=== PATIENT | male | born 1950 | race Caucasian/White ===

== ENCOUNTER → 2016-10-23 | Outpatient (CLI) | payer MEDICARE ==
[~2016-10-23] MED LIST: ALEVE 220MG220 MG PO; DAILY VITE1 TA1 PO; FISH OIL1 IU PO; GLUCOSAMINE PO; LOW DOSE ASPIRI81 M1 PO; NATURAL FLAX1000 MG PO; NO HOME MEDICATIONS
== END ==
LOC: LAB 10:39
DX: E78.1 Pure hyperglyceridemia (principal); Z12.5 Encounter for screening for malignant neoplasm of prostate

== ENCOUNTER → 2016-10-30 | Outpatient (CLI) | payer MEDICARE | LOC: LAB 11:25 | DX: Z23 Encounter for immunization (principal); Z00.00 Encounter for general adult medical examination without abnormal findings; R13.10 Dysphagia, unspecified; N40.0 Benign prostatic hyperplasia without lower urinary tract symptoms; K21.9 Gastro-esophageal reflux disease without esophagitis; M16.12 Unilateral primary osteoarthritis, left hip; L57.0 Actinic keratosis; R73.09 Other abnormal glucose ==

== ENCOUNTER → 2016-11-25 | Day surgery (SDC) | payer MEDICARE | LOC: MSO 07:10 | DX: K21.9 Gastro-esophageal reflux disease without esophagitis (principal); K29.60 Other gastritis without bleeding; K44.9 Diaphragmatic hernia without obstruction or gangrene | CPT/HCPCS: 00740; A4649; J7120 ==

== ENCOUNTER → 2017-12-18 | Outpatient (CLI) | payer MEDICARE ==
[2016-03-25 10:38] VITALS: BP 118/88
[2017-12-18 09:56] LABS: ALBUMIN 3.7 g/dL (3.5-5.0); BUN/CREATININE RATIO 34.1 (6.0-26.0); CALCIUM 8.9 mg/dL (8.4-10.2); POTASSIUM 4.3 mmol/L (3.6-5.0); TOTAL BILIRUBIN 0.4 mg/dL (0.2-1.3); TOTAL PROTEIN 6.9 g/dL (6.3-8.2)
== END ==
LOC: LAB 09:30
PROVIDERS: Family Medicine
DX: Z00.00 Encounter for general adult medical examination without abnormal findings (principal); Z13.6 Encounter for screening for cardiovascular disorders; N40.0 Benign prostatic hyperplasia without lower urinary tract symptoms; Z13.1 Encounter for screening for diabetes mellitus; K44.9 Diaphragmatic hernia without obstruction or gangrene; L21.8 Other seborrheic dermatitis; R03.0 Elevated blood-pressure reading, without diagnosis of hypertension

== ENCOUNTER 2018-09-28 18:22 | Emergency (ER) | payer MEDICARE ==
[~2018-09-28] VITALS: Ht 180.3 cm; Wt 101.8 kg
[2018-09-28] MEDS ORDERED: PROSTATE HEALT1 EACH (18:30)
[2018-09-28 19:14] LABS: HEMATOCRIT 38.4 % (42.0-52.0); HEMOGLOBIN 12.4 g/dL (13.5-18.0); RED BLOOD COUNT 4.62 M/mm3 (4.20-5.60); RED CELL DISTRIBUTION WIDTH 16.5 % (11.5-14.5); WHITE BLOOD COUNT 6.7 K/mm3 (4.8-10.8)
[2018-09-28 19:20] LABS: ALBUMIN 3.9 g/dL (3.5-5.0); CALCIUM 8.8 mg/dL (8.4-10.2); TOTAL BILIRUBIN 0.4 mg/dL (0.2-1.3); TOTAL PROTEIN 6.5 g/dL (6.3-8.2)
[2018-09-28 19:57] LABS: URINE APPEARANCE CLEAR; URINE COLOR YELLOW
[2018-09-28 19:58] LABS: URINE BILIRUBIN NEGATIVE (NEGATIVE); URINE BLOOD 250 ery/uL (NEGATIVE); URINE GLUCOSE NEGATIVE (NEGATIVE); URINE KETONE NEGATIVE (NEGATIVE); URINE LEUKOCYTE ESTERASE TRACE (NEGATIVE); URINE NITRATE NEGATIVE (NEGATIVE); URINE PROTEIN(semi-quant) TRACE mg/dL (NEGATIVE); URINE UROBILINOGEN NORMAL (NORMAL)
[2018-09-28] MEDS ORDERED: FLOMAX0.4 MG PO (21:10)
[2018-09-28 21:20] VITALS: BP 125/80
== END 2018-09-28 21:20 | disposition home or self-care (01) ==
LOC: ED 18:22
PROVIDERS: Nurse Practitioner Family
DX: N13.2 Hydronephrosis with renal and ureteral calculous obstruction (principal)
CPT/HCPCS: J1885

== ENCOUNTER 2019-03-09 06:33 | Emergency (ER) | payer MEDICARE ==
[~2019-03-09] VITALS: Ht 180.3 cm; Wt 81.8 kg
[~2019-03-09 06:33] MED LIST changes: +FLOMAX0.4 MG PO; +PROSTATE HEALT1 EACH
[2019-03-09 07:35] LABS: HEMATOCRIT 45.5 % (42.0-52.0); HEMOGLOBIN 15.1 g/dL (13.5-18.0); MEAN CELL VOLUME 84 fl (78-100); MEAN CORPUSCULAR HEMOGLOBIN 28 pg (27-31); MEAN CORPUSCULAR HGB CONC 33 g/dL (33-37); MEAN PLATELET VOLUME 10.5 fl (7.4-10.4); PLATELET COUNT 154 K/mm3 (130-400); RED BLOOD COUNT 5.44 M/mm3 (4.20-5.60); RED CELL DISTRIBUTION WIDTH 20.6 % (11.5-14.5); WHITE BLOOD COUNT 6.1 K/mm3 (4.8-10.8)
[2019-03-09 07:56] LABS: ALBUMIN 3.6 g/dL (3.4-4.8); CALCIUM 9.1 mg/dL (8.3-10.5); POTASSIUM 3.8 mmol/L (3.5-5.1); TOTAL BILIRUBIN 3.2 mg/dL (0.2-1.2); TOTAL PROTEIN 6.6 g/dL (6.2-8.1)
[2019-03-09 08:02] LABS: BAND 16 % (0-10); LYMPHOCYTE 3 % (20-51); MONOCYTE 8 % (3-10); NEUTROPHILS 72 % (42-75); OVALOCYTES 1+
[2019-03-09 09:30] LABS: PROTHROMBIN TIME 14.4 SECONDS (9.0-12.0)
[2019-03-09 09:53] VITALS: BP 112/70
[2019-03-09 13:40] LABS: URINE APPEARANCE CLEAR; URINE COLOR AMBER; URINE GLUCOSE NEGATIVE (NEGATIVE); URINE PROTEIN(semi-quant) TRACE mg/dL (NEGATIVE)
[2019-03-09 13:41] LABS: URINE BLOOD TRACE (NEGATIVE); URINE KETONE NEGATIVE (NEGATIVE); URINE LEUKOCYTE ESTERASE NEGATIVE (NEGATIVE); URINE NITRATE NEGATIVE (NEGATIVE); URINE UROBILINOGEN 4 mg/dL (NORMAL)
[2019-03-10 07:36] LABS: URINE BILIRUBIN 2+ (NEGATIVE)
== END 2019-03-09 09:52 | disposition other institution (70) ==
LOC: ED 06:33
PROVIDERS: Nurse Practitioner Primary Care
DX: A93.8 Other specified arthropod-borne viral fevers (principal); G93.40 Encephalopathy, unspecified; A41.9 Sepsis, unspecified organism; N40.0 Benign prostatic hyperplasia without lower urinary tract symptoms; Z98.890 Other specified postprocedural states; Z79.82 Long term (current) use of aspirin
CPT/HCPCS: J1885; J2405; J7030; J7050

== ENCOUNTER 2019-03-09 08:52 | Inpatient (IN) | payer MEDICARE ==
[~2019-03-09] VITALS: Ht 180.3 cm; Wt 99.8 kg
[2019-03-09 09:52] VITALS: BP 113/70
[2019-03-09 10:53] VITALS: BP 112/70
--- NOTE | 2019-03-09 13:21 | NUR ---
PT EXPERIENCES CHILLS AT THIS TIME, FEVER OF 100 DEGREES FARENHEIT ORAL AT THIS TIME, 1000MG TYLENOL ADMINISTERED, PT STATES HE IS ACTUALLY "FEELING BETTER", STILL HAS A HEADACHE AT THIS TIME, WILL CONTINUE TO MONITOR AND ADDRESS FEVER
[2019-03-09 14:57] VITALS: BP 116/67
--- NOTE | 2019-03-09 15:31 | NUR ---
PT AFEBRILE, NO LONGER CHILLING
--- NOTE | 2019-03-09 15:32 | NUR ---
PT AMBULATORY 1:1 ASSIST WITH GAIT BELT AND WALKER, STEADY GAIT NOTED WITH AMBULATION TO RESTROOM
[2019-03-09 18:12] VITALS: BP 126/70
--- NOTE | 2019-03-09 19:07 | NUR ---
PT UP IN CHAIR VISITING WITH , ABLE TO AMBULATE WITH WALKER TO RESTROOM 1:1 CGA WITH NURSE, PT IS FULLY ALERT AND ORIENTED, SMILING AFFECT, EMPHASIZES MULTIPLE TIMES HE IS "FINALLY FEELING MUCH MUCH BETTER," REPORTS THIS IS THE BEST HE'S LOOKED IN DAYS, IV FLUIDS STILL RUNNING AT 125ML/HR VIA PERIPHERAL IV, DENIES NEEDS, REPORTS HEADACHE IS "JUST NOW STARTING TO COME BACK, BUT NOTHING LIKE EARLIER YET," EDUCATED HE CAN HAVE MORE IV PAIN CONTROL AT 8PM, STABLE AT THIS TIME, CHAIR ALARM ON, CALL LIGHT WITHIN REACH
[2019-03-09 23:57] VITALS: BP 119/70
[2019-03-10 03:16] VITALS: BP 130/74
[2019-03-10 06:24] VITALS: BP 133/79
[2019-03-10 06:56] LABS: HEMATOCRIT 41.2 % (42.0-52.0); HEMOGLOBIN 13.4 g/dL (13.5-18.0); MEAN CELL VOLUME 86 fl (78-100); MEAN CORPUSCULAR HEMOGLOBIN 28 pg (27-31); MEAN CORPUSCULAR HGB CONC 33 g/dL (33-37); MEAN PLATELET VOLUME 11.2 fl (7.4-10.4); PLATELET COUNT 129 K/mm3 (130-400); RED BLOOD COUNT 4.82 M/mm3 (4.20-5.60); RED CELL DISTRIBUTION WIDTH 21.1 % (11.5-14.5); WHITE BLOOD COUNT 4.8 K/mm3 (4.8-10.8)
[2019-03-10 07:27] LABS: ALBUMIN 2.9 g/dL (3.4-4.8); CALCIUM 8.2 mg/dL (8.3-10.5); POTASSIUM 3.6 mmol/L (3.5-5.1); TOTAL BILIRUBIN 3.1 mg/dL (0.2-1.2); TOTAL PROTEIN 5.5 g/dL (6.2-8.1)
[2019-03-10 07:31] LABS: NEUTROPHILS 70 % (42-75)
[2019-03-10 07:32] LABS: BAND 13 % (0-10); LYMPHOCYTE 7 % (20-51); MONOCYTE 10 % (3-10)
[2019-03-10 07:37] LABS: OVALOCYTES 1+
[2019-03-10 10:39] LABS: URINE APPEARANCE CLOUDY; URINE BILIRUBIN 2+ (NEGATIVE); URINE COLOR AMBER; URINE GLUCOSE NEGATIVE (NEGATIVE); URINE KETONE 2+ (NEGATIVE); URINE PROTEIN(semi-quant) 1+ mg/dL (NEGATIVE); URINE UROBILINOGEN 4 mg/dL (NORMAL)
[2019-03-10 10:40] LABS: URINE BLOOD 50 ery/uL (NEGATIVE); URINE LEUKOCYTE ESTERASE NEGATIVE (NEGATIVE); URINE NITRATE NEGATIVE (NEGATIVE)
[2019-03-10 10:42] LABS: URINE MUCUS PRESENT (NOT PRESENT)
[2019-03-10 11:15] VITALS: BP 153/73
[2019-03-10 15:25] VITALS: BP 136/79
--- NOTE | 2019-03-10 16:59 | NUR ---
patient up to chair from nap. Patient did rest quite a bit this afternoon with his visiting on and off. Patient reports headache is there but doesn't really hurt. Patient reports feeling a little better but needing to rest often.
[2019-03-10 18:20] VITALS: BP 130/72
--- NOTE | 2019-03-10 21:02 | NUR ---
Report received from Mady LAU. Had visitors up until now. Rests in bed with IVF and IV antibiotics infusing at this time. IV site to L wrist patent. Rates pain to H/A over L eye 10/15. Would like some Toradol or Tylenol. Toradol given IV. Denies body aches. States feeling "much better" then when he came in. Assessment completed. Denies wants or needs at this time.
[2019-03-10 23:11] VITALS: BP 132/78
--- NOTE | 2019-03-11 01:01 | NUR ---
Calls for assist to BR PRN. IVF infusing normal saline at 75 ML/HR. Site patent. Denies pain.
--- NOTE | 2019-03-11 03:22 | NUR ---
Up to BR with SBA. No device. Gait steady. Voided 400 ML of dom urine. Had medium hard BM per his report, (he flushed toilet). Requests to sit in recliner at this time. Denies pain. IVF continue to infuse at 75 ML/HR. Site patent.
[2019-03-11 03:43] VITALS: BP 161/89
--- NOTE | 2019-03-11 06:02 | NUR ---
Dr. Alston calls to check on patient. Labs ordered for this AM. Orders received to D/C IVF.
[2019-03-11 06:21] VITALS: BP 156/93
[2019-03-11 06:43] LABS: EOS # 0.1 (0.04-0.40); EOS % 1.7 % (0.0-4.0); HEMATOCRIT 38.9 % (42.0-52.0); HEMOGLOBIN 12.6 g/dL (13.5-18.0); MEAN CELL VOLUME 86 fl (78-100); MEAN CORPUSCULAR HEMOGLOBIN 28 pg (27-31); MEAN CORPUSCULAR HGB CONC 32 g/dL (33-37); MEAN PLATELET VOLUME 11.1 fl (7.4-10.4); MONO # 0.4 (0.20-0.80); NEU # 1.9 (1.40-6.50); PLATELET COUNT 143 K/mm3 (130-400); RED BLOOD COUNT 4.55 M/mm3 (4.20-5.60); RED CELL DISTRIBUTION WIDTH 20.9 % (11.5-14.5)
[2019-03-11 06:57] LABS: LYMPH# 0.7 (1.50-4.00)
[2019-03-11 07:09] LABS: CALCIUM 8.4 mg/dL (8.3-10.5); POTASSIUM 3.4 mmol/L (3.5-5.1)
--- NOTE | 2019-03-11 07:22 | NUR ---
Report to Ladan LAU.
[2019-03-11] MEDS ORDERED: DOXYCYCLINE HYC50 M1 PO (07:58)
[2019-03-11 08:04] LABS: ALBUMIN 2.8 g/dL (3.4-4.8); DIRECT BILIRUBIN 1.5 mg/dL (0.0-0.5); TOTAL BILIRUBIN 1.8 mg/dL (0.2-1.2); TOTAL PROTEIN 5.2 g/dL (6.2-8.1)
[2019-03-11 11:08] VITALS: BP 166/87
--- NOTE | 2019-03-11 12:12 | NUR ---
PT IS SITTING IN HIS RECLINER EATING HIS LUNCH, HE DENIES ANY PAIN. HE HAS A HEARTY APPETITE. HE IS INQUISITIVE ABOUT ANY SIDE EFFECTS FROM TICK BITES. I WILL PRINT ANY TEACHING REGARDING THIS AND GIVE TO HIM. HE IS ANTICIPATING HIS POSSIBLE DISCHARGE TODAY DEPENDING ON HIS BLOOD PRESSURE DECREASING WITH HIS NEW BP MED. I WILL CONTINUE TO MONITOR HIS BP AND REPORT TO DR MCLEAN.
[2019-03-11 13:25] VITALS: BP 145/79
--- NOTE | 2019-03-11 16:12 | NUR ---
Pt was discharged today and left the hospital at 1455. He was wheel chaired out by [facility] to car to go home with his . Discharge packet was given and reviewed with the pt. and all personal belongings were taken.
== END 2019-03-11 14:55 | disposition home or self-care (01) | DRG 868 ==
LOC: MED/SURG 08:52
PROVIDERS: Family Medicine; ADMIT Nurse Practitioner Primary Care
DX: A77.49 Other ehrlichiosis (principal); A93.8 Other specified arthropod-borne viral fevers; G93.49 Other encephalopathy; B17.8 Other specified acute viral hepatitis; R39.15 Urgency of urination; D69.59 Other secondary thrombocytopenia; I10 Essential (primary) hypertension; R73.03 Prediabetes; Z66 Do not resuscitate
CPT/HCPCS: C9113; J1650; J1885; J7030; J7050

== ENCOUNTER → 2019-03-22 | Outpatient (CLI) | payer MEDICARE ==
[2019-03-11 13:25] VITALS: BP 145/79
[~2019-03-22] MED LIST changes: +DOXYCYCLINE HYC50 M1 PO
[2019-03-22 11:04] LABS: HEMATOCRIT 44.8 % (42.0-52.0); HEMOGLOBIN 14.6 g/dL (13.5-18.0); MEAN PLATELET VOLUME 10.7 fl (7.4-10.4); RED BLOOD COUNT 5.18 M/mm3 (4.20-5.60); RED CELL DISTRIBUTION WIDTH 19.5 % (11.5-14.5); WHITE BLOOD COUNT 5.4 K/mm3 (4.8-10.8)
[2019-03-22 11:21] LABS: ALBUMIN 3.7 g/dL (3.4-4.8); CALCIUM 9.8 mg/dL (8.3-10.5); POTASSIUM 4.1 mmol/L (3.5-5.1); TOTAL BILIRUBIN 0.9 mg/dL (0.2-1.2); TOTAL PROTEIN 6.7 g/dL (6.2-8.1)
== END ==
LOC: LAB 10:47
PROVIDERS: Family Medicine
DX: I10 Essential (primary) hypertension (principal); K75.9 Inflammatory liver disease, unspecified; D64.9 Anemia, unspecified; R73.03 Prediabetes

== ENCOUNTER 2019-05-24 18:03 | Emergency (ER) | payer MEDICARE ==
[2019-05-24] MEDS ORDERED: AMOXICILLIN 50500 MG (18:27)
[2019-05-24 18:48] LABS: BASO # 0.1 (0.02-0.10); EOS # 0.1 (0.04-0.40); EOS % 1.4 % (0.0-4.0); HEMATOCRIT 46.5 % (42.0-52.0); LYMPH# 2.6 (1.50-4.00); MEAN CELL VOLUME 90 fl (78-100); MEAN CORPUSCULAR HEMOGLOBIN 31 pg (27-31); MEAN CORPUSCULAR HGB CONC 34 g/dL (33-37); MONO # 0.9 (0.20-0.80); NEU # 4.2 (1.40-6.50); PLATELET COUNT 254 K/mm3 (130-400); RED BLOOD COUNT 5.16 M/mm3 (4.20-5.60); RED CELL DISTRIBUTION WIDTH 15.1 % (11.5-14.5); WHITE BLOOD COUNT 7.8 K/mm3 (4.8-10.8)
[2019-05-24 18:56] LABS: CALCIUM 9.5 mg/dL (8.3-10.5)
[2019-05-24 20:40] VITALS: BP 156/93
== END 2019-05-24 20:40 | disposition short-term general hospital (02) ==
LOC: ED 18:03
PROVIDERS: Nurse Practitioner Primary Care
DX: S61.412A Laceration without foreign body of left hand, initial encounter (principal); Z98.890 Other specified postprocedural states; Z79.82 Long term (current) use of aspirin; W29.3XXA Contact with powered garden and outdoor hand tools and machinery, initial encounter; Y92.009 Unspecified place in unspecified non-institutional (private) residence as the place of occurrence of the external cause
CPT/HCPCS: J3010; J7030

== ENCOUNTER → 2019-06-08 | Outpatient (CLI) | payer MEDICARE ==
[2019-05-24 20:40] VITALS: BP 156/93
[~2019-06-08] MED LIST changes: +AMOXICILLIN 50500 MG
== END ==
LOC: LAB 09:04
DX: I10 Essential (primary) hypertension (principal); R73.03 Prediabetes

== ENCOUNTER → 2019-06-16 | Outpatient (CLI) | payer MEDICARE ==
[2019-05-24 20:40] VITALS: BP 156/93
[2019-06-16 10:58] LABS: POTASSIUM 4.1 mmol/L (3.5-5.1)
[2019-06-16 10:59] LABS: CALCIUM 9.4 mg/dL (8.3-10.5)
[2019-06-16 11:01] LABS: TOTAL PROTEIN 6.9 g/dL (6.2-8.1)
[2019-06-16 11:02] LABS: TOTAL BILIRUBIN 0.8 mg/dL (0.2-1.2)
== END ==
LOC: LAB 10:27
PROVIDERS: Family Medicine
DX: Z00.00 Encounter for general adult medical examination without abnormal findings (principal); Z13.1 Encounter for screening for diabetes mellitus; Z13.6 Encounter for screening for cardiovascular disorders; R73.03 Prediabetes; I10 Essential (primary) hypertension; N40.0 Benign prostatic hyperplasia without lower urinary tract symptoms; R22.9 Localized swelling, mass and lump, unspecified; L57.0 Actinic keratosis; K44.9 Diaphragmatic hernia without obstruction or gangrene

== ENCOUNTER → 2019-09-23 | Outpatient (CLI) | payer MEDICARE ==
[2019-09-23 12:35] LABS: HEMATOCRIT 44.9 % (42.0-52.0); HEMOGLOBIN 15.2 g/dL (13.5-18.0); LYMPHOCYTE 4 % (20-51); MEAN CELL VOLUME 89 fl (78-100); MEAN CORPUSCULAR HEMOGLOBIN 30 pg (27-31); MEAN CORPUSCULAR HGB CONC 34 g/dL (33-37); MEAN PLATELET VOLUME 10.4 fl (7.4-10.4); MONOCYTE 7 % (3-10); NEUTROPHILS 89 % (42-75); PLATELET COUNT 249 K/mm3 (130-400); POTASSIUM 3.8 mmol/L (3.5-5.1); RED BLOOD COUNT 5.05 M/mm3 (4.20-5.60); RED CELL DISTRIBUTION WIDTH 14.9 % (11.5-14.5); WHITE BLOOD COUNT 10.2 K/mm3 (4.8-10.8)
[2019-09-23 12:36] LABS: CALCIUM 9.5 mg/dL (8.3-10.5)
[2019-09-23 12:44] LABS: PH-URINE 5.5 (5.0 - 8.0); URINE APPEARANCE HAZY; URINE BILIRUBIN NEGATIVE (NEGATIVE); URINE BLOOD 50 ery/uL (NEGATIVE); URINE COLOR YELLOW; URINE GLUCOSE NEGATIVE (NEGATIVE); URINE KETONE NEGATIVE (NEGATIVE); URINE LEUKOCYTE ESTERASE NEGATIVE (NEGATIVE); URINE MUCUS PRESENT (NOT PRESENT); URINE NITRATE NEGATIVE (NEGATIVE); URINE PROTEIN(semi-quant) 2+ mg/dL (NEGATIVE); URINE UROBILINOGEN 8 mg/dL (NORMAL)
== END ==
LOC: LAB 12:16 → RAD 12:16
PROVIDERS: Family Medicine
DX: S39.012A Strain of muscle, fascia and tendon of lower back, initial encounter (principal); K80.20 Calculus of gallbladder without cholecystitis without obstruction; K52.9 Noninfective gastroenteritis and colitis, unspecified
CPT/HCPCS: Q9967

== ENCOUNTER → 2019-09-30 | Outpatient (CLI) | payer MEDICARE ==
[2019-09-30 15:35] LABS: RED BLOOD COUNT 5.12 M/mm3 (4.20-5.60)
[2019-09-30 15:36] LABS: HEMATOCRIT 46.4 % (42.0-52.0); HEMOGLOBIN 15.3 g/dL (13.5-18.0); MEAN CELL VOLUME 91 fl (78-100); MEAN CORPUSCULAR HEMOGLOBIN 30 pg (27-31); MEAN CORPUSCULAR HGB CONC 33 g/dL (33-37); PLATELET COUNT 401 K/mm3 (130-400); RED CELL DISTRIBUTION WIDTH 14.7 % (11.5-14.5)
[2019-09-30 15:39] LABS: LYMPHOCYTE 16 % (20-51); MONOCYTE 1 % (3-10); NEUTROPHILS 81 % (42-75)
[2019-09-30 15:40] LABS: MEAN PLATELET VOLUME 11.1 fl (7.4-10.4)
== END ==
LOC: LAB 13:43
PROVIDERS: Family Medicine
DX: K80.00 Calculus of gallbladder with acute cholecystitis without obstruction (principal)

== ENCOUNTER → 2020-02-15 | Outpatient (CLI) | payer MEDICARE | LOC: RAD 08:51 | DX: J90 Pleural effusion, not elsewhere classified (principal); J98.11 Atelectasis; E78.00 Pure hypercholesterolemia, unspecified ==

== ENCOUNTER → 2020-02-21 | Outpatient (CLI) | payer MEDICARE ==
[2020-02-21 15:15] LABS: BASO # 0.1 (0.02-0.10); EOS # 0.2 (0.04-0.40); EOS % 2.6 % (0.0-4.0); HEMATOCRIT 40.9 % (42.0-52.0); HEMOGLOBIN 13.5 g/dL (13.5-18.0); LYMPH# 1.6 (1.50-4.00); MEAN CELL VOLUME 90 fl (78-100); MEAN CORPUSCULAR HEMOGLOBIN 30 pg (27-31); MEAN CORPUSCULAR HGB CONC 33 g/dL (33-37); MEAN PLATELET VOLUME 10.1 fl (7.4-10.4); MONO # 0.5 (0.20-0.80); PLATELET COUNT 349 K/mm3 (130-400); RED BLOOD COUNT 4.56 M/mm3 (4.20-5.60); RED CELL DISTRIBUTION WIDTH 13.4 % (11.5-14.5); WHITE BLOOD COUNT 7.4 K/mm3 (4.8-10.8)
== END ==
LOC: LAB 12:24 → RAD 12:24
PROVIDERS: Family Medicine
DX: R07.81 Pleurodynia (principal); R73.03 Prediabetes; M89.8X1 Other specified disorders of bone, shoulder

== ENCOUNTER → 2020-03-13 | Outpatient (CLI) | payer MEDICARE | LOC: RAD 08:19 | DX: M89.8X1 Other specified disorders of bone, shoulder (principal); M79.81 Nontraumatic hematoma of soft tissue; R73.03 Prediabetes ==

== ENCOUNTER → 2020-04-21 | Outpatient (CLI) | payer MEDICARE | LOC: RAD 10:42 | DX: J18.9 Pneumonia, unspecified organism (principal) ==

== ENCOUNTER 2020-12-11 07:47 | Outpatient (RCR) | payer MEDICARE | END 2021-03-11 | disposition home or self-care (01) | LOC: PT | DX: M25.551 Pain in right hip (principal) ==

== ENCOUNTER → 2021-02-13 | Outpatient (CLI) | payer MEDICARE ==
[2021-02-13 08:01] LABS: ALBUMIN 3.7 g/dL (3.4-4.8); POTASSIUM 4.1 mmol/L (3.5-5.1)
[2021-02-13 08:02] LABS: CALCIUM 8.6 mg/dL (8.3-10.5)
[2021-02-13 08:04] LABS: TOTAL PROTEIN 6.1 g/dL (6.2-8.1)
[2021-02-13 08:05] LABS: TOTAL BILIRUBIN 0.8 mg/dL (0.2-1.2)
== END ==
LOC: LAB 07:18
PROVIDERS: Family Medicine
DX: Z12.5 Encounter for screening for malignant neoplasm of prostate (principal); I10 Essential (primary) hypertension; R73.01 Impaired fasting glucose

== ENCOUNTER 2021-10-30 08:30 | Outpatient (RCR) | payer MEDICARE | END 2021-11-05 | disposition home or self-care (01) | LOC: PT | DX: M25.572 Pain in left ankle and joints of left foot (principal) ==

== ENCOUNTER → 2022-02-22 | Outpatient (CLI) | payer MEDICARE ==
[2022-02-22 09:51] LABS: BASO # 0.05 K/mm3 (0.02-0.10); EOS # 0.09 K/mm3 (0.04-0.40); EOS % 1.5 % (0.0-4.0); HEMATOCRIT 43.9 % (42.0-52.0); HEMOGLOBIN 14.7 g/dL (13.5-18.0); LYMPH# 0.97 K/mm3 (1.50-4.00); MEAN CELL VOLUME 92 fl (78-100); MEAN CORPUSCULAR HEMOGLOBIN 31 pg (27-31); MEAN CORPUSCULAR HGB CONC 34 g/dL (33-37); MEAN PLATELET VOLUME 10.1 fl (7.4-10.4); MONO # 0.55 K/mm3 (0.20-0.80); NEU # 4.24 K/mm3 (1.40-6.50); PLATELET COUNT 214 K/mm3 (130-400); RED CELL DISTRIBUTION WIDTH 13.4 % (11.5-14.5); WHITE BLOOD COUNT 5.9 K/mm3 (4.8-10.8)
== END ==
LOC: RAD 08:58 → LAB 08:58
PROVIDERS: Family Medicine
DX: M17.11 Unilateral primary osteoarthritis, right knee (principal)

== ENCOUNTER → 2022-04-30 | Outpatient (CLI) | payer MEDICARE ==
[2022-04-30 12:06] LABS: ALBUMIN 3.8 g/dL (3.4-4.8); POTASSIUM 4.2 mmol/L (3.5-5.1)
[2022-04-30 12:07] LABS: CALCIUM 9.1 mg/dL (8.3-10.5)
[2022-04-30 12:09] LABS: TOTAL PROTEIN 6.7 g/dL (6.2-8.1)
[2022-04-30 12:10] LABS: TOTAL BILIRUBIN 0.6 mg/dL (0.2-1.2)
== END ==
LOC: LAB 07:08
PROVIDERS: Family Medicine
DX: Z12.5 Encounter for screening for malignant neoplasm of prostate (principal); R73.03 Prediabetes; N40.1 Benign prostatic hyperplasia with lower urinary tract symptoms; M70.41 Prepatellar bursitis, right knee

== ENCOUNTER → 2022-08-01 | Outpatient (CLI) | payer MEDICARE ==
[2022-08-01 07:33] LABS: ALBUMIN 3.7 g/dL (3.4-4.8); POTASSIUM 4.2 mmol/L (3.5-5.1)
[2022-08-01 07:35] LABS: TOTAL PROTEIN 6.3 g/dL (6.2-8.1)
[2022-08-01 07:37] LABS: TOTAL BILIRUBIN 0.4 mg/dL (0.2-1.2)
== END ==
LOC: LAB 07:04
PROVIDERS: Family Medicine
DX: E78.2 Mixed hyperlipidemia (principal)

== ENCOUNTER → 2023-09-17 | Outpatient (CLI) | payer MEDICARE ==
[2023-09-17 09:20] LABS: CALCIUM 9.7 mg/dL (8.3-10.5)
== END ==
LOC: LAB 08:58
PROVIDERS: Family Medicine
DX: Z12.5 Encounter for screening for malignant neoplasm of prostate (principal); R73.03 Prediabetes; I49.3 Ventricular premature depolarization; E78.2 Mixed hyperlipidemia

== ENCOUNTER → 2023-12-24 | Outpatient (CLI) | payer MEDICARE | LOC: LAB 08:21 | PROVIDERS: Family Medicine | DX: E11.9 Type 2 diabetes mellitus without complications (principal) ==

== ENCOUNTER 2024-05-14 13:29 | Emergency (ER) | payer MEDICARE ==
[~2024-05-14] VITALS: Ht 180.3 cm; Wt 97.7 kg
[2024-05-14 13:58] LABS: BASO # 0.05 K/mm3 (0.02-0.10); EOS % 1.7 % (0.0-4.0); HEMATOCRIT 45.7 % (42.0-52.0); HEMOGLOBIN 15.6 g/dL (13.5-18.0); LYMPH# 1.15 K/mm3 (1.50-4.00); MEAN CELL VOLUME 92 fl (78-100); MEAN CORPUSCULAR HEMOGLOBIN 31 pg (27-31); MEAN CORPUSCULAR HGB CONC 34 g/dL (33-37); MEAN PLATELET VOLUME 10.3 fl (7.4-10.4); NEU # 4.08 K/mm3 (1.40-6.50); PLATELET COUNT 188 K/mm3 (130-400); RED BLOOD COUNT 4.97 M/mm3 (4.20-5.60); RED CELL DISTRIBUTION WIDTH 12.7 % (11.5-14.5); WHITE BLOOD COUNT 5.8 K/mm3 (4.8-10.8)
[2024-05-14 14:09] LABS: CALCIUM 9.3 mg/dL (8.3-10.5)
[2024-05-14 14:11] LABS: TOTAL PROTEIN 6.6 g/dL (6.2-8.1)
[2024-05-14] MEDS ORDERED: VITAMIN D325 MC2 PO (14:19)
[2024-05-14] MEDS ORDERED: ACETAMINOPHEN500 M5 PO (14:22)
[2024-05-14] MEDS ORDERED: PRILOSEC OTC20 MG PO (14:24)
[2024-05-14] MEDS ORDERED: Iohexol 300 - 100 ML VIAL IV ONE (14:27)
[2024-05-14] MEDS ORDERED: LIPITOR 10M10 MG/TAB PO (14:32)
[2024-05-14] MEDS ORDERED: METOPROLOL SUCC25 M1 PO (14:34)
[2024-05-14] MEDS ORDERED: FLOMAX0.4 MG PO (14:38)
[2024-05-14] MEDS ORDERED: ZOFRAN ODT4 MG PO (15:09)
[2024-05-14] MEDS ORDERED: PERCOCET 325 MG1 TA5 PO (15:09)
[2024-05-14 15:50] VITALS: BP 134/75
[2024-05-14 16:02] LABS: URINE APPEARANCE SLIGHTLY CLOUDY (CLEAR); URINE BILIRUBIN NEGATIVE (NEGATIVE); URINE COLOR YELLOW (YELLOW); URINE GLUCOSE NEGATIVE (NEGATIVE); URINE KETONE NEGATIVE (NEGATIVE); URINE NITRATE NEGATIVE (NEGATIVE); URINE PROTEIN(semi-quant) NEGATIVE (NEGATIVE)
[2024-05-14 16:03] LABS: URINE BLOOD 2+ (NEGATIVE); URINE LEUKOCYTE ESTERASE NEGATIVE (NEGATIVE); URINE MUCUS PRESENT (NOT PRESENT)
== END 2024-05-14 15:36 | disposition home or self-care (01) ==
LOC: ED 13:29
PROVIDERS: Family Medicine
DX: R10.9 Unspecified abdominal pain (principal)
CPT/HCPCS: J7120; Q9967

== ENCOUNTER → 2024-06-10 | Outpatient (CLI) | payer MEDICARE ==
[~2024-06-10] MED LIST changes: +ACETAMINOPHEN500 M5 PO; +LIPITOR 10M10 MG/TAB PO; +METOPROLOL SUCC25 M1 PO; +PERCOCET 325 MG1 TA5 PO; +PRILOSEC OTC20 MG PO; +VITAMIN D325 MC2 PO; +ZOFRAN ODT4 MG PO
== END ==
LOC: RAD 08:35 → LAB 08:35
DX: I42.0 Dilated cardiomyopathy (principal)

== ENCOUNTER → 2024-07-26 | Outpatient (CLI) | payer MEDICARE ==
[2024-07-26 11:28] LABS: CALCIUM 9.1 mg/dL (8.3-10.5)
== END ==
LOC: LAB 11:08
PROVIDERS: Family Medicine
DX: E11.9 Type 2 diabetes mellitus without complications (principal)